=== PATIENT | female | born 1995 ===

== ENCOUNTER 2017-02-28 11:15 | Emergency (ER) | payer BC, OTHER ==
--- NOTE | 2017-02-28 13:53 | RAD ---
RIGHT KNEE 4 VIEWS: Date: 02/28/17 HISTORY: Trauma, right knee pain. FINDINGS/IMPRESSION: No acute fracture or dislocation is seen. POS: [facility]
--- NOTE | 2017-02-28 13:53 | RAD ---
RIGHT SHOULDER 3 VIEWS: Date: 02/28/17 INDICATION: Trauma, pain. FINDINGS: No fracture or dislocation. AC joint is maintained. IMPRESSION: No acute osseous abnormality of the right shoulder. POS: [facility]
--- NOTE | 2017-02-28 13:54 | RAD ---
RIGHT ELBOW 4 VIEWS: Date: 02/28/17 INDICATION: Pain. FINDINGS: There is a minimally displaced fracture of the olecranon process with associated joint capsular dist ention. IMPRESSION: Fracture involving the olecranon process. This does involve the articular surface of the elbow. POS: [facility]
--- NOTE | 2017-02-28 13:55 | RAD ---
FRONTAL VIEW CHEST: Date: 02/28/17 No prior comparison. INDICATION: Post-traumatic pain. FINDINGS: The lungs are clear. There is no effusion or pneumothorax. Cardiac silhouette is within normal limit s of size for portable supine technique. IMPRESSION: No focal consolidation. POS: [facility]
--- NOTE | 2017-02-28 13:55 | RAD ---
LEFT KNEE 4 VIEWS: Date: 02/28/17 HISTORY: Trauma, left knee pain. FINDINGS/IMPRESSION: No acute fracture or dislocation is identified. POS: [facility]
--- NOTE | 2017-02-28 13:57 | CT ---
CT BRAIN WITHOUT CONTRAST: Date: 02/28/17 HISTORY: Trauma, headache. FINDINGS: No evidence of acute infarct, hemorrhage, midline shift, or abnormal extra-axial fluid collections a re seen. The ventricular size is normal and the basilar cisterns are patent. The bony calvarium is i ntact. The visualized paranasal sinuses and mastoid air cells are well aerated. IMPRESSION: No CT evidence of acute intracranial process. POS: [facility]
--- NOTE | 2017-02-28 13:57 | CT ---
CT CERVICAL SPINE WITH CORONAL AND SAGITTAL REFORMATIONS: Date: 02/28/17 HISTORY: Trauma, neck pain. FINDINGS/IMPRESSION: There is loss of cervical lordosis with minimal reversal. No acute fracture or subluxation is identi fied. POS: [facility]
[2017-02-28] MEDS ORDERED: HYDROcodone/Acetaminophen 5/325 mg Tablet ONE (14:49)
[2017-02-28] MEDS ORDERED: Ondansetron ODT 4 MG TAB ONE (16:08)
== END 2017-02-28 16:20 | disposition home or self-care (01) ==
LOC: ERS 11:15
DX: S52.024A Nondisplaced fracture of olecranon process without intraarticular extension of right ulna, initial encounter for closed fracture (principal); Z79.899 Other long term (current) drug therapy; V01.90XA Pedestrian on foot injured in collision with pedal cycle, unspecified whether traffic or nontraffic accident, initial encounter
CPT/HCPCS: 29105; 70450; 71010; 72125; 81025; Q0162